=== PATIENT | male | born 1990 | race Hispanic/Latino ===

== ENCOUNTER 2024-03-08 19:14 | Emergency (ER) | payer OTHER ==
[~2024-03-08] VITALS: Ht 165.1 cm; Wt 63.5 kg
[2024-03-08 19:47] LABS: BASOPHILS # (AUTO) 0.06 K/uL (0.00-0.20); BASOPHILS % (AUTO) 0.6 % (0.0-5.0); EOSINOPHILS # (AUTO) 0.24 K/uL (0.00-0.70); EOSINOPHILS % (AUTO) 2.5 % (0.0-8.0); HEMATOCRIT 40.7 % (42-54); IMMATURE GRANULOCYTE ABSOLUTE 0.36 K/uL (0-1); LYMPHOCYTES % (AUTO) 30.9 % (21.0-51.0); MEAN CORPUSCULAR HGB CONC 33.2 g/dL (32.0-36.0); MEAN CORPUSCULAR VOLUME 87.3 fL (79-99); MONOCYTES # (AUTO) 0.3 K/uL (0.1-1.0); MONOCYTES % (AUTO) 3.3 % (3.0-13.0); NEUTROPHILS # (AUTO) 5.7 K/uL (1.8-7.7); PLATELET COUNT (AUTO) 217 K/uL (130-400); RED BLOOD CELL COUNT(AUTO) 4.66 MIL/uL (4.50-6.20); RED CELL DISTRIBUTION WIDTH 13.2 % (11.0-15.5); WHITE BLOOD COUNT (AUTO) 9.6 K/uL (4.8-10.8)
[2024-03-08] MEDS: LEVETIRACETAM 500 MG/5 ML SD VIAL IV SCH (19:50)
[2024-03-08 19:59] LABS: CREATININE 1.1 mg/dL (0.5-1.3); POTASSIUM 3.7 mmol/L (3.5-5.1)
[2024-03-08 20:04] LABS: ALBUMIN 3.9 g/dL (3.5-5.0); BILIRUBIN,TOTAL 0.2 mg/dL (0.2-1.0)
[2024-03-08] MEDS: KETOROLAC 15MG/ML VIAL (15MG/ML) IV ONE (20:26)
[2024-03-08 20:36] LABS: ADD UA MICROSCOPIC YES; APPEARANCE,URINE CLEAR (CLEAR); BILIRUBIN,URINE NEGATIVE (NEGATIVE); COLOR,URINE LIGHT-YELLOW (YELLOW); GLUCOSE, URINE (UA) NEGATIVE (NEGATIVE); KETONES,URINE 5 mg/dL (NEGATIVE); LEUKOCYTE ESTERASE ,URINE NEGATIVE Leu/uL (NEGATIVE); NITRATE,URINE NEGATIVE (NEGATIVE); OCCULT BLOOD,URINE SMALL (NEGATIVE); PH,URINE 5.5 (5.0-8.0); PROTEIN,URINE 50 mg/dL (NEGATIVE); UROBILINOGEN,URINE 0.2 mg/dL (0.2-1.0)
[2024-03-08 20:40] LABS: MUCUS,URINE FEW LPF (None Seen); OTHER CASTS, URINE 3 /LPF (None Seen); WBC,URINE 0-1 /HPF (0-1)
[2024-03-08 20:43] LABS: AMPHET/METH SCREEN,URINE NEGATIVE (NEGATIVE); BARBITURATE SCREEN, URINE NEGATIVE (NEGATIVE); BENZODIAZEPINES SCREEN,URINE NEGATIVE (NEGATIVE); CANNABINOID SCREEN,URINE NEGATIVE (NEGATIVE); COCAINE SCREEN,URINE NEGATIVE (NEGATIVE); OPIATE SCREEN,URINE NEGATIVE (NEGATIVE); PHENCYCLIDINE SCREEN,URINE NEGATIVE (NEGATIVE)
[2024-03-08 21:09] VITALS: BP 120/84; PULSE 116; RESP 15; O2SAT 98
== END 2024-03-08 21:08 | disposition home or self-care (01) ==
LOC: EDH 19:14
DX: G40.909 Epilepsy, unspecified, not intractable, without status epilepticus (principal)
CPT/HCPCS: 99284; 96365; 96375; 80053; 80305; 85025; 81001; 36415; 80177; J1953; J1885